=== PATIENT | female | born 1990 | race Caucasian/White ===

== ENCOUNTER → 2017-06-13 | Outpatient (CLI) | payer SELFPAY ==
[~2017-06-13] MED LIST: ALBU90OI INH; BENTYL20 MG PO; CIPR500 PO; ESOM20; LORA1 PO; NORETHTP TOP
== END | disposition home or self-care (01) ==
LOC: LAB EV 17:42
DX: J02.9 Acute pharyngitis, unspecified (principal); R30.0 Dysuria
CPT/HCPCS: 87070; 87077; 87086; 87186

== ENCOUNTER → 2018-10-17 | Outpatient (CLI) | payer BC, OTHER ==
[2018-10-24 15:06] LABS: CHLAMYDIA TRACHOMATIS, NAA Negative (Negative); NEISSERIA GONORRHOEAE, NAA Negative (Negative)
== END | disposition home or self-care (01) ==
LOC: LAB SHORT 14:39 → LAB 14:39
PROVIDERS: Advanced Practice Midwife
DX: Z36.89 Encounter for other specified antenatal screening (principal)
CPT/HCPCS: 87491; 87591; 87624; 87625; G0123

== ENCOUNTER 2019-01-31 19:19 | Emergency (ER) | payer BC, OTHER | END 2019-01-31 19:45 | disposition left against medical advice (07) | LOC: ER 19:19 | DX: Z53.21 Procedure and treatment not carried out due to patient leaving prior to being seen by health care provider (principal) ==

== ENCOUNTER → 2019-04-16 | Outpatient (CLI) | payer BC, OTHER ==
[~2019-04-16] MED LIST changes: +BUSP10 PO; +SERT25 PO
== END | disposition home or self-care (01) ==
LOC: LAB SHORT 14:37 → LAB 14:37
DX: Z34.93 Encounter for supervision of normal pregnancy, unspecified, third trimester (principal)
CPT/HCPCS: 87081; 87653

== ENCOUNTER 2019-05-08 03:24 | Inpatient (IN) | payer BC, OTHER ==
[~2019-05-08] VITALS: Ht 165.1 cm; Wt 70.9 kg
[~2019-05-08 03:24] MED LIST changes: -BUSP10 PO; -SERT25 PO
[2019-05-08 03:53] LABS: Source, Urine Clean Catch
[2019-05-08 03:54] LABS: Bilirubin, Urine Neg (Neg); Blood, Urine 5+ (Neg); Glucose Qualitative, Urine Neg (Neg); Ketones, Urine Neg (Neg); Leukocyte Esterase, Urine 3+ (Neg); Nitrite, Urine Neg (Neg); Protein, Urine 1+ (Neg); Urobilinogen, Urine NORM (Normal)
[2019-05-08 04:00] LABS: Appearance, Urine Cloudy (Clear); Color, Urine Yellow (P-Yellow)
[2019-05-08 04:01] LABS: Squamous Epithelial Cells Mod /hpf (Few); White Blood Cells, Urine 50-100 /hpf (0-5)
[2019-05-08 04:02] LABS: Amorphous Light (0-Heavy); Bacteria Many /hpf; Mucus Light (0-Heavy)
[2019-05-08] MEDS ORDERED: SERT25 PO (04:58)
[2019-05-08 05:23] LABS: BASOPHILS ABSOLUTE AUTO 0.03 K/mm3 (0.00-0.23); BASOPHILS PERCENT AUTO 0 % (0-2); EOSINOPHILS ABSOLUTE AUTO 0.02 K/mm3 (0.00-0.68); EOSINOPHILS PERCENT AUTO 0 % (0-6); Hematocrit 35.8 % (33.0-51.0); Hemoglobin 11.9 g/dL (11.5-16.0); IMMATURE GRAN ABSOLUTE AUTO 0.05 K/mm3 (0.00-0.10); IMMATURE GRAN PERCENT AUTO 0 % (0-1); LYMPHOCYTES PERCENT AUTO 23 % (21-46); MONOCYTES ABSOLUTE AUTO 1.09 K/mm3 (0.16-1.47); MONOCYTES PERCENT AUTO 7 % (4-13); Mean Corpuscular HGB Conc 33.2 g/dL (31.5-36.5); Mean Corpuscular Volume 87 fL (80-100); Mean Platelet Volume 10.3 fL (9.1-12.4); NEUTROPHILS ABSOLUTE AUTO 10.12 K/mm3 (1.96-9.15); NEUTROPHILS PERCENT AUTO 69 % (41-73); Platelet Count 211 K/mm3 (150-400); RDW Coefficient Variation 12.9 % (11.7-14.2); RDW Standard Deviation 40.7 fL (35.1-46.3); White Blood Cell Count 14.71 K/mm3 (4.00-11.30)
[2019-05-08] MEDS ORDERED: BUSP10 PO (06:24)
[2019-05-09 05:18] LABS: Hematocrit 35.1 % (33.0-51.0); Hemoglobin 11.4 g/dL (11.5-16.0); Mean Corpuscular HGB 28.7 pg (26.0-34.0); Mean Corpuscular HGB Conc 32.5 g/dL (31.5-36.5); Mean Corpuscular Volume 88 fL (80-100); Mean Platelet Volume 10.4 fL (9.1-12.4); Platelet Count 193 K/mm3 (150-400); RDW Coefficient Variation 13.1 % (11.7-14.2); RDW Standard Deviation 42.1 fL (35.1-46.3); Red Blood Cell Count 3.97 M/mm3 (3.80-5.20); White Blood Cell Count 19.28 K/mm3 (4.00-11.30)
--- NOTE | 2019-05-09 07:25 | NUR ---
Pt resting in bed, nb at breast. Denies needs or complaints at this time.
--- NOTE | 2019-05-09 15:15 | NUR ---
Pt resting in bed, feeding nb. Denies needs at this time.
--- NOTE | 2019-05-09 22:06 | NUR ---
DURING D/C PT BECAME VERY ARGUMENTATIVE AGAINST THE SUPPORTIVE MALE THAT WAS IN THE ROOM (NOT FOB BUT NOT A SIGNIFICANT OTHER. PT DESCRIBED JUST A GOOD SUPPORTIVE FRIEND). THE MALE WALKED OUT OF ROOM AND LEFT AFTER PT YELLED AT HIM TO GO AWAY. PT BECAME VERY TEARY AFTER THIS. RN INTO ROOM TO GO OVER D/C INSTRUCTIONS WITH PT LAST TIME. ISABELLE M[place] SURE TO TOUCH ON AND TAKL ABOUT POST DEPRESSION DUE TO PT HAVING HX OF ANXIETY/DEPRESSION AND SUICIDAL IDEATION DURING . RN WROTE [facility]BP FRONT DECK NUMBER AND HIGHLIGHTED AND TOLD PT TO CALL ANY TIME IF SHE WAS HAD QUESTIONS OR WAS HAVING ANY ISSUES WITH HERSELF OR BABY. RN WALKED PT OUT TO [facility]. Kiran STRAPPED NB CAR SEAT INTO BACK OF CAR. PT SEEMED OKAY AT THIS MOMENT. PT REPEATEDLY STATED DURING D/C THAT SHE IS CHRONICALLY EXHAUSTED AND JUST NEEDS TO SLEEP. RN REMINDED PT TO ALWAYS PLACE NB INTO A CRIB OR BASSINET SWADDLED IF SHE FELT LIKE SHE WAS GOING TO FALL ASLEEP. PT VERBALIZED UNDERSTANDING. RN GAVE PT EXTRA FORMULA AND NIPPLES FOR HOME WELL. PT AWARE OF POST FOLLOW UP VISIT SCHEDULED IN 2 DAYS AND NB 2 WEEK FOLLOW UP APPOINTMENT.
== END 2019-05-09 21:21 | disposition home or self-care (01) | DRG 807 ==
LOC: OBS 03:24 → BC 03:25 → OBS 05:07 → BC 05:08
PROVIDERS: Obstetrics & Gynecology; ADMIT Registered Nurse Community Health
PROC: 10E0XZZ Delivery of Products of Conception, External Approach (ICD-10-PCS; principal; 2019-05-08)
PROC: 0HQ9XZZ Repair Perineum Skin, External Approach (ICD-10-PCS; 2019-05-08)
PROC: 10907ZC Drainage of Amniotic Fluid, Therapeutic from Products of Conception, Via Natural or Artificial Opening (ICD-10-PCS; 2019-05-08)
PROC: 3E0R3BZ Introduction of Anesthetic Agent into Spinal Canal, Percutaneous Approach (ICD-10-PCS; 2019-05-08)
DX: O99.824 Streptococcus B carrier state complicating childbirth (principal); Z37.0 Single live birth; O76 Abnormality in fetal heart rate and rhythm complicating labor and delivery; O70.0 First degree perineal laceration during delivery; Z3A.39 39 weeks gestation of pregnancy; O66.5 Attempted application of vacuum extractor and forceps; O99.344 Other mental disorders complicating childbirth; F32.9 Major depressive disorder, single episode, unspecified; F41.9 Anxiety disorder, unspecified; Z91.040 Latex allergy status; Z88.8 Allergy status to other drugs, medicaments and biological substances; Z91.018 Allergy to other foods
CPT/HCPCS: 36415; 51702; 59025; 81001; 85025; 85027; 87086; 90471; 90707; J0290; J2001; J2590; J3010; J7120

== ENCOUNTER → 2019-07-09 | Outpatient (CLI) | payer OTHER ==
[~2019-07-09] MED LIST changes: +BUSP10 PO; +SERT25 PO
[2019-07-10 06:33] LABS: Candida species (DNA Probe) Negative (NEGATIVE); G. vaginalis (DNA Probe) Positive (NEGATIVE); T. vaginalis (DNA Probe) Negative (NEGATIVE)
== END | disposition home or self-care (01) ==
LOC: LAB SHORT 14:36 → LAB 14:36
PROVIDERS: Advanced Practice Midwife
DX: Z11.3 Encounter for screening for infections with a predominantly sexual mode of transmission (principal); N76.0 Acute vaginitis
CPT/HCPCS: 87480; 87510; 87660

== ENCOUNTER → 2019-07-16 | Outpatient (CLI) | payer OTHER | LOC: PLD 07:53 → LAB SHORT 07:53 | DX: N87.9 Dysplasia of cervix uteri, unspecified (principal) | CPT/HCPCS: 88305 ==

== ENCOUNTER → 2020-03-14 | Outpatient (CLI) | payer BC | END | disposition home or self-care (01) | LOC: LAB SHORT 16:00 → LAB EV 16:00 | DX: J20.9 Acute bronchitis, unspecified (principal); Z20.828 Contact with and (suspected) exposure to other viral communicable diseases | CPT/HCPCS: U0003 ==

== ENCOUNTER 2020-05-06 12:30 | Emergency (ER) | payer BC ==
[~2020-05-06] VITALS: Ht 165.1 cm; Wt 74.8 kg
[2020-05-06] MEDS ORDERED: ALBU90OI (12:45)
[2020-05-06 13:03] LABS: BASOPHILS ABSOLUTE AUTO 0.03 K/mm3 (0.00-0.23); BASOPHILS PERCENT AUTO 1 % (0-2); EOSINOPHILS ABSOLUTE AUTO 0.05 K/mm3 (0.00-0.68); EOSINOPHILS PERCENT AUTO 1 % (0-6); Hematocrit 43.8 % (33.0-51.0); Hemoglobin 14.6 g/dL (11.5-16.0); IMMATURE GRAN ABSOLUTE AUTO 0.02 K/mm3 (0.00-0.10); IMMATURE GRAN PERCENT AUTO 0 % (0-1); LYMPHOCYTES PERCENT AUTO 44 % (21-46); MONOCYTES ABSOLUTE AUTO 0.44 K/mm3 (0.16-1.47); MONOCYTES PERCENT AUTO 7 % (4-13); Mean Corpuscular HGB 31.3 pg (26.0-34.0); Mean Corpuscular HGB Conc 33.3 g/dL (31.5-36.5); Mean Corpuscular Volume 94 fL (80-100); Mean Platelet Volume 9.5 fL (9.1-12.4); NEUTROPHILS ABSOLUTE AUTO 2.97 K/mm3 (1.96-9.15); NEUTROPHILS PERCENT AUTO 47 % (41-73); Platelet Count 212 K/mm3 (150-400); RDW Coefficient Variation 12.8 % (11.7-14.2); RDW Standard Deviation 44.1 fL (35.1-46.3); Red Blood Cell Count 4.67 M/mm3 (3.80-5.20); White Blood Cell Count 6.31 K/mm3 (4.00-11.30)
[2020-05-06 13:25] LABS: Alanine Aminotransfer (ALT/SGP 17 U/L (12-78); Alk Phos 74 U/L (50-136); Anion Gap 7 mmol/L (6-16); Aspartate Aminotrans (AST/SGOT 16 U/L (12-37); Bilirubin, Total 0.3 mg/dL (0.1-1.0); Blood Urea Nitrogen 7 mg/dL (8-24); CO2, Blood 24 mmol/L (21-32); Calcium, Blood 8.9 mg/dL (8.5-10.1); Chloride, Blood 109 mmol/L (98-108); Creatinine, Blood 0.58 mg/dL (0.40-1.00); Globulin, Blood 4.2 g/dL (2.2-4.0); Glomerular Filtration Rate >60 (60-); Glucose, Blood 84 mg/dL (70-99); Potassium, Blood 3.7 mmol/L (3.5-5.5); Sodium, Blood 140 mmol/L (136-145); Total Protein, Blood 8.2 g/dL (6.4-8.2)
[2020-05-06 13:34] LABS: Source, Urine Clean Catch
[2020-05-06 13:38] LABS: Appearance, Urine Hazy (Clear); Bilirubin, Urine Neg (Neg); Blood, Urine 1+ (Neg); Color, Urine Yellow (P-Yellow); Glucose Qualitative, Urine Neg (Neg); Ketones, Urine Neg (Neg); Leukocyte Esterase, Urine 3+ (Neg); Nitrite, Urine Neg (Neg); Protein, Urine 1+ (Neg); Specific Gravity, Urine 1.025 (1.003-1.022); Urobilinogen, Urine NORM (Normal)
[2020-05-06 13:51] LABS: White Blood Cells, Urine TNTC /hpf (0-5)
[2020-05-06 13:52] LABS: Bacteria Many /hpf; Squamous Epithelial Cells Many /hpf (Few)
== END 2020-05-06 15:11 | disposition home or self-care (01) ==
LOC: ER 12:30
PROVIDERS: Physician Assistant
DX: N83.201 Unspecified ovarian cyst, right side (principal); T83.39XA Other mechanical complication of intrauterine contraceptive device, initial encounter; Z88.6 Allergy status to analgesic agent; Z91.040 Latex allergy status; Z91.018 Allergy to other foods; Z88.5 Allergy status to narcotic agent; Z88.8 Allergy status to other drugs, medicaments and biological substances; Z79.899 Other long term (current) drug therapy; Z87.891 Personal history of nicotine dependence
CPT/HCPCS: 36415; 74177; 76830; 76856; 80053; 81001; 83690; 85025; 87086; 96374-59; 96375; 99284-25; J2765; J3010; J7030; Q9967

== ENCOUNTER 2020-05-29 16:49 | Emergency (ER) | payer BC, OTHER ==
[~2020-05-29] VITALS: Ht 167.6 cm; Wt 73.5 kg
[~2020-05-29 16:49] MED LIST changes: +ALBU90OI
== END 2020-05-29 18:46 | disposition left against medical advice (07) ==
LOC: ER 16:49
DX: T83.39XA Other mechanical complication of intrauterine contraceptive device, initial encounter (principal); Z53.21 Procedure and treatment not carried out due to patient leaving prior to being seen by health care provider
CPT/HCPCS: 99283

== ENCOUNTER → 2020-06-06 | Outpatient (CLI) | payer BC, OTHER ==
[~2020-06-06] MED LIST changes: +HYDACE25S PR
[2020-06-07 13:47] LABS: Candida species (DNA Probe) Negative (NEGATIVE); G. vaginalis (DNA Probe) Positive (NEGATIVE); T. vaginalis (DNA Probe) Negative (NEGATIVE)
[2020-06-09 16:10] LABS: CHLAMYDIA TRACHOMATIS, NAA Negative (Negative)
== END ==
LOC: LAB 09:55 → LAB SHORT 09:55
PROVIDERS: Advanced Practice Midwife
DX: Z11.3 Encounter for screening for infections with a predominantly sexual mode of transmission (principal); Z01.419 Encounter for gynecological examination (general) (routine) without abnormal findings; N76.0 Acute vaginitis; Z88.1 Allergy status to other antibiotic agents; Z88.6 Allergy status to analgesic agent; Z88.8 Allergy status to other drugs, medicaments and biological substances; Z91.040 Latex allergy status; Z91.018 Allergy to other foods
CPT/HCPCS: 87480; 87491; 87510; 87591; 87660; G0123

== ENCOUNTER 2020-11-11 12:59 | Emergency (ER) | payer BC, OTHER ==
[~2020-11-11] VITALS: Ht 165.1 cm; Wt 81.7 kg
[~2020-11-11 12:59] MED LIST changes: -HYDACE25S PR
[2020-11-11] MEDS ORDERED: HYDACE25S PR (16:06)
== END 2020-11-11 16:12 | disposition home or self-care (01) ==
LOC: ER 12:59
DX: K64.8 Other hemorrhoids (principal); Z79.899 Other long term (current) drug therapy; Z87.891 Personal history of nicotine dependence; Z91.040 Latex allergy status; Z91.018 Allergy to other foods; Z88.8 Allergy status to other drugs, medicaments and biological substances
CPT/HCPCS: 99282

== ENCOUNTER → 2021-08-12 | Outpatient (CLI) | payer BC, OTHER ==
[~2021-08-12] MED LIST changes: +HYDACE25S PR
[2021-08-14 13:11] LABS: HPV 16 Negative (Negative); HPV 18 Negative (Negative); HPV OTHER HR TYPES Positive (Negative)
== END | disposition home or self-care (01) ==
LOC: LAB SHORT 15:35
PROVIDERS: Advanced Practice Midwife
DX: R87.612 Low grade squamous intraepithelial lesion on cytologic smear of cervix (LGSIL) (principal)
CPT/HCPCS: 87624; 87625; 88142

== ENCOUNTER → 2021-10-01 | Outpatient (CLI) | payer OTHER | END | disposition home or self-care (01) | LOC: LAB SHORT 13:47 | DX: N87.1 Moderate cervical dysplasia (principal) | CPT/HCPCS: 88305 ==

== ENCOUNTER 2021-12-03 10:38 | Day surgery (SDC) | payer OTHER ==
[~2021-12-03] VITALS: Ht 165.1 cm; Wt 83.8 kg
[2021-12-03] MEDS ORDERED: BUSP10 PO (11:08)
[2021-12-03] MEDS ORDERED: SERT50 PO (11:09)
--- NOTE | 2021-12-03 12:51 | NUR ---
12/03/21 1251 Jacquelyn Pollock FÉLIX AREA PREPPED WITH BETADINE SOLUTION BY CRISTOPHER WALTON. ABDOMINAL AREA PREPPED WITH DURAPRE BY JACQUELYN WALTON. BUPIVACAINE 0.5% 50 MLS MIXED WITH 0.25 ML EPI. DOSE MIXED, VERIFIED, & DIVIDED IN OR BY RNS DUE TO SHORTAGE. 10 MLS OF BUPIVACAINE 0.5% 1:200,[address]ITE [address] FIGUEROA.
== END 2021-12-03 14:00 | disposition home or self-care (01) ==
LOC: ORSCSDS 10:38
PROVIDERS: Obstetrics & Gynecology
PROC: 0UT54ZZ Resection of Right Fallopian Tube, Percutaneous Endoscopic Approach (ICD-10-PCS; principal; 2021-12-03 12:00)
PROC: 0UT04ZZ Resection of Right Ovary, Percutaneous Endoscopic Approach (ICD-10-PCS; principal; 2021-12-03 12:00)
DX: N83.291 Other ovarian cyst, right side (principal); J45.909 Unspecified asthma, uncomplicated; F41.8 Other specified anxiety disorders; Z79.899 Other long term (current) drug therapy
CPT/HCPCS: 88305; A9270; J1100; J2250; J2405; J2704; J2765; J3010

== ENCOUNTER → 2022-01-21 | Outpatient (CLI) | payer OTHER ==
[~2022-01-21] MED LIST changes: +SERT50 PO
== END | disposition home or self-care (01) ==
LOC: LAB SHORT 13:35
DX: N87.1 Moderate cervical dysplasia (principal)
CPT/HCPCS: 88305

== ENCOUNTER → 2022-07-26 | Outpatient (CLI) | payer OTHER ==
[2022-07-28 10:10] LABS: HPV 16 Negative (Negative); HPV 18 Negative (Negative); HPV OTHER HR TYPES Negative (Negative)
== END | disposition home or self-care (01) ==
LOC: LAB SHORT 12:28 → LAB 12:28
PROVIDERS: Obstetrics & Gynecology
DX: R87.810 Cervical high risk human papillomavirus (HPV) DNA test positive (principal)
CPT/HCPCS: 87624; 88175

== ENCOUNTER → 2023-02-16 | Outpatient (CLI) | payer OTHER ==
[2023-02-18 16:07] LABS: HPV 16 Negative (Negative); HPV 18 Negative (Negative); HPV OTHER HR TYPES Negative (Negative)
== END | disposition home or self-care (01) ==
LOC: LAB SHORT 16:34 → LAB 16:34
PROVIDERS: Obstetrics & Gynecology
DX: R87.810 Cervical high risk human papillomavirus (HPV) DNA test positive (principal)
CPT/HCPCS: 87624; 88175

== ENCOUNTER 2024-01-28 00:29 | Emergency (ER) | payer OTHER ==
[~2024-01-28] VITALS: Ht 165.1 cm; Wt 89.8 kg
[2024-01-28 00:37] VITALS: BP 146/104
[2024-01-28] MEDS ORDERED: Ketorolac Tromethamine 15mg Vial IM ONE (00:40)
[2024-01-28] MEDS ORDERED: Diphth,Pertuss(Acell),Tet Vac 0.5 ML VIAL IM ONE (00:40)
[2024-01-28] MEDS ORDERED: OxyCODONE HCL 5 MG TAB PO ONE ×2 (00:50→01:30)
[2024-01-28] MEDS ORDERED: Silver Sulfadiazine 1% Cream 25 APPLIC/25 GM Tube TOP ONE (01:15)
[2024-01-28] MEDS ORDERED: RX Prepack 6 Tabs Oxycodone 5mg UD ONE (02:15)
== END 2024-01-28 02:21 | disposition home or self-care (01) ==
LOC: ER 00:29
DX: T21.12XA Burn of first degree of abdominal wall, initial encounter (principal); T23.151A Burn of first degree of right palm, initial encounter; T31.0 Burns involving less than 10% of body surface; Z87.891 Personal history of nicotine dependence; Z79.899 Other long term (current) drug therapy; Z88.6 Allergy status to analgesic agent; Z88.5 Allergy status to narcotic agent; Z91.040 Latex allergy status; Z91.018 Allergy to other foods; Z88.8 Allergy status to other drugs, medicaments and biological substances
CPT/HCPCS: 90471; 90715; 96372; 99284-25; A9270; J1885

== ENCOUNTER → 2024-05-17 | Outpatient (CLI) | payer OTHER ==
[2024-05-23 07:10] LABS: HPV HIGH RISK BY TMA Not Detected; HPV SOURCE Cervical
== END ==
LOC: LAB 11:01 → LAB SHORT 11:01
PROVIDERS: Obstetrics & Gynecology
DX: Z01.419 Encounter for gynecological examination (general) (routine) without abnormal findings (principal)
CPT/HCPCS: 87624; G0123

== ENCOUNTER 2025-01-09 11:47 | Emergency (ER) | payer OTHER ==
[~2025-01-09] VITALS: Ht 165.1 cm; Wt 91.6 kg
[2025-01-09 12:07] VITALS: BP 137/99
[2025-01-09] MEDS ORDERED: HYDHCL25 PO (14:00)
== END 2025-01-09 14:13 | disposition home or self-care (01) ==
LOC: ER 11:47
DX: R45.851 Suicidal ideations (principal); Z86.59 Personal history of other mental and behavioral disorders; Z87.891 Personal history of nicotine dependence; Z88.6 Allergy status to analgesic agent; Z88.5 Allergy status to narcotic agent; Z91.040 Latex allergy status; Z88.8 Allergy status to other drugs, medicaments and biological substances; Z91.018 Allergy to other foods; Z79.899 Other long term (current) drug therapy
CPT/HCPCS: 99285; A9270